=== PATIENT | male | born 1985 | race Caucasian/White ===

== ENCOUNTER → 2018-10-16 | Outpatient (CLI) | payer OTHER ==
[~2018-10-16] MED LIST: PROHANCE 279.3MG/ML 15ML VIAL (A9576) As Ordered
== END ==
LOC: M RAD 14:48
DX: Z85.831 Personal history of malignant neoplasm of soft tissue (principal); J34.1 Cyst and mucocele of nose and nasal sinus
CPT/HCPCS: A9576

== ENCOUNTER → 2019-05-25 | Outpatient (CLI) | payer OTHER ==
--- NOTE | 2019-05-25 23:02 | REP ---
Clinical: Angiomyolipoma of the right kidney. Technique: Real time yao scale ultrasound examination using curved array transducer. Findings: The right kidney is normal in reniform shape and measures 11.1 x 5.7 x 5.3 cm with 1.6 x 1.5 x 1.9 cm cortical based hyperechoic mid pole lesion as well as 1.7 x 1.5 x 1.5 cm hyperechoic upper pole lesion and 1.1 x 0.9 x 1.0 cm hyperechoic lower pole lesion. No hydronephrosis, nephrolithiasis, or cystic changes appreciated. The left kidney is normal in reniform shape and echogenicity measuring 11.3 x 5.4 x 4.9 cm without hydronephrosis, nephrolithiasis, cystic, or mass lesion. Bladder is grossly unremarkable. Impression: Three homogeneous hyperechoic lesions within the right kidney may represent angiomyolipoma. Consider pre and postcontrast CT evaluation or MRI for definitive diagnosis. Electronically Signed by Carlos Andre MD 05/25/2019 10:53 P
== END ==
LOC: M RAD 13:30
PROVIDERS: ATTEND Nurse Practitioner Women's Health
DX: D30.01 Benign neoplasm of right kidney (principal)